=== PATIENT | female | born 1940 | race Caucasian/White ===

== ENCOUNTER 2018-08-21 09:06 | Day surgery (SDC) | payer MEDICARE, BC ==
[~2018-08-21] VITALS: Ht 165.1 cm; Wt 88.1 kg
[~2018-08-21 09:06] MED LIST: ASPI81CH PO; BENA20 PO; CALCIUM PO; HYDCHL25 PO; IBUP800 PO; IRON PO; OMEPRAZOLE20 MG PO; THERA1 EACH PO; VITAMIN B122500 MC1 PO
--- NOTE | 2018-08-21 09:40 | NUR ---
Ambulatory in Day Surgery. History, Chart, Medications and Allergies reviewed before start of procedure.Lungs clear T/O to Auscultation. Patient confirms NPO status and agrees with scheduled surgery.
[2018-08-21] MEDS ORDERED: Zantac150 MG (09:58)
--- NOTE | 2018-08-21 13:46 | NUR ---
NOTED REDDENED AND INDURATED AREA ALONG RT CHEEK ? FROM MASK. NO PAIN/BREAK IN SKIN NOTED
--- NOTE | 2018-08-21 18:47 | NUR ---
SHIFT SUMMARY S/P R TKA, CAMACHO WRAP DRESSING APPEARS CDI. TEDS, SCDS, POLAR AMAN ON. PAIN MANAGED PER EMAR. BRYANNA PO, DENIES N&V. WCTM & TX PER EMAR UNTIL REPORT GIVEN TO ONCOMING NOC RN.
[2018-08-22 04:40] LABS: BASOPHILS ABSOLUTE AUTO 0.02 K/mm3 (0.00-0.23); BASOPHILS PERCENT AUTO 0 % (0-2); EOSINOPHILS PERCENT AUTO 0 % (0-6); Hemoglobin 10.3 g/dL (11.5-16.0); IMMATURE GRAN ABSOLUTE AUTO 0.05 K/mm3 (0.00-0.10); IMMATURE GRAN PERCENT AUTO 0 % (0-1); LYMPHOCYTES ABSOLUTE AUTO 0.64 K/mm3 (0.84-5.20); LYMPHOCYTES PERCENT AUTO 5 % (21-46); MONOCYTES ABSOLUTE AUTO 0.65 K/mm3 (0.16-1.47); MONOCYTES PERCENT AUTO 5 % (4-13); Mean Corpuscular HGB 28.1 pg (26.0-34.0); Mean Corpuscular HGB Conc 31.2 g/dL (31.5-36.5); Mean Corpuscular Volume 90 fL (80-100); Mean Platelet Volume 9.2 fL (9.1-12.4); NEUTROPHILS ABSOLUTE AUTO 12.28 K/mm3 (1.96-9.15); NEUTROPHILS PERCENT AUTO 90 % (41-73); Platelet Count 291 K/mm3 (150-400); RDW Standard Deviation 45.6 fL (35.1-46.3); Red Blood Cell Count 3.67 M/mm3 (3.80-5.20); White Blood Cell Count 13.64 K/mm3 (4.00-11.30)
[2018-08-22 04:58] LABS: Anion Gap 6 mmol/L (6-16); Blood Urea Nitrogen 21 mg/dL (8-24); Bun/Creatinine Ratio 28.3 (12.0-20.0); CO2, Blood 28 mmol/L (21-32); Calcium, Blood 7.9 mg/dL (8.5-10.1); Chloride, Blood 103 mmol/L (98-108); Creatinine, Blood 0.74 mg/dL (0.40-1.00); Glomerular Filtration Rate >60 (60-); Glucose, Blood 119 mg/dL (70-99); Magnesium, Blood 1.8 mg/dL (1.6-2.4); Potassium, Blood 4.1 mmol/L (3.5-5.5); Sodium, Blood 137 mmol/L (136-145)
--- NOTE | 2018-08-22 05:50 | NUR ---
SHIFT SUMMARY PT RESTED WELL T/O AM. AAOX4. POD#1 RIGHT TKA. DISCOMFORT CONTROLLED WITH SCHEDULED TORADOL / TYLENOL + 5MG ROXICODONE Q4. NO NAUSEA/EMESIS. CAMACHO WRAP TO RIGHT KNEE C/D/I. PT UP TO RESTROOM SBA WITH FWW. 1L VIA NC, CONTINUE TO WEAN TOLERATED. CALL LIGHT IN REACH. PT USES FOR ASSISTANCE.
[2018-08-22] MEDS ORDERED: ROXICODONE5 MG PO (08:54)
[2018-08-22] MEDS ORDERED: PROM25 PO (08:54)
[2018-08-22] MEDS ORDERED: ASPI325EC PO (08:54)
--- NOTE | 2018-08-22 14:52 | NUR ---
DISCHARGE SUMMARY PT A&OX4, VSS, LEFT FLOOR VIA WC WITH RN TO GO HOME WITH AND DAUGHTER, WITH ALL PERSONAL POSSESSIONS INCLUDING DISCHARGE PACKET. PT REP ALREADY HAVING POSSESSION OF SCRIPTS. DISCHARGE INSTRUCTIONS PROVIDED. PT REP UNDERSTANDING THOSE INSTRUCTIONS INCLUDING DRESSING CHANGES 3-5 DAYS, FU WITH SURGEON 2WKS, OK TO SHOWER, NO TUB/JACUZZI, ASA AND TEDS 6 WKS, SHORT FREQUENT AMBULATION, REST/ICE/ELEVATE. DC IV.
== END 2018-08-22 14:25 | disposition home or self-care (01) ==
LOC: ORSCMMR 09:06 → ORD 10:30 → ORSCMMR 10:30 → SURS 14:23 → ORSCMMR 08-22 14:25 → SURS 08-22 14:25
PROVIDERS: Orthopaedic Surgery
PROC: 0SRC0J9 Replacement of Right Knee Joint with Synthetic Substitute, Cemented, Open Approach (ICD-10-PCS; principal; 2018-08-21 10:30)
PROC: 8E0YXBZ Computer Assisted Procedure of Lower Extremity (ICD-10-PCS; principal; 2018-08-21 10:30)
DX: M17.11 Unilateral primary osteoarthritis, right knee (principal); I10 Essential (primary) hypertension; K21.9 Gastro-esophageal reflux disease without esophagitis; E66.9 Obesity, unspecified; Z68.32 Body mass index [BMI] 32.0-32.9, adult; Z79.82 Long term (current) use of aspirin; Z79.899 Other long term (current) drug therapy
CPT/HCPCS: 73560-RT; 80048; 83735; 85025; 88300; 97110; 97116; 97162; 97530; C1713; C1776; J0171; J0690; J0735; J1100; J1170; J1885; J2250; J2370; J2405; J2704; J2795; J3010; J3370; J7120

== ENCOUNTER → 2020-04-07 | Outpatient (CLI) | payer MEDICARE, BC ==
[~2020-04-07] MED LIST changes: +ASPI325EC PO; +Aspir 8181 MG PO; +PROM25 PO; +ROXICODONE5 MG PO; +Zantac150 MG
[2020-04-07 14:25] LABS: C DIFFICILE DNA NEGATIVE (Negative)
== END | disposition home or self-care (01) ==
LOC: LAB SHORT 09:48 → PLD 09:48
PROVIDERS: Internal Medicine Gastroenterology
DX: R19.7 Diarrhea, unspecified (principal)
CPT/HCPCS: 87329; 87493

== ENCOUNTER 2020-04-14 11:29 | Day surgery (SDC) | payer MEDICARE, BC ==
[~2020-04-14] VITALS: Ht 165.1 cm; Wt 78.9 kg
--- NOTE | 2020-04-14 12:48 | NUR ---
04/14/20 1248 Inés Wilkinson CAP REFILL & PEDAL PULSES NOT ASSESSED.
--- NOTE | 2020-04-14 13:49 | NUR ---
04/14/20 1349 Inés Wilkinson 6ML NACL USED FOR POLYP REMOVAL, 5ML EPINEPHRINE USED FOR ANAL CANAL BXS.
== END 2020-04-14 14:15 | disposition home or self-care (01) ==
LOC: ORSCSDS 11:29
PROVIDERS: Internal Medicine Gastroenterology
PROC: 0DBH8ZX Excision of Cecum, Via Natural or Artificial Opening Endoscopic, Diagnostic (ICD-10-PCS; principal; 2020-04-14 12:45)
PROC: 0DBP8ZX Excision of Rectum, Via Natural or Artificial Opening Endoscopic, Diagnostic (ICD-10-PCS; principal; 2020-04-14 12:45)
DX: R19.7 Diarrhea, unspecified (principal); D12.0 Benign neoplasm of cecum; K52.832 Lymphocytic colitis; Z86.010 Personal history of colon polyps; K57.30 Diverticulosis of large intestine without perforation or abscess without bleeding; I10 Essential (primary) hypertension; Z79.899 Other long term (current) drug therapy; K21.9 Gastro-esophageal reflux disease without esophagitis; Z79.82 Long term (current) use of aspirin
CPT/HCPCS: 88305; J2704; J7120

== ENCOUNTER 2021-09-14 10:49 | Day surgery (SDC) | payer MEDICARE, BC ==
[~2021-09-14] VITALS: Ht 165.1 cm; Wt 85.6 kg
[~2021-09-14 10:49] MED LIST changes: +OMEP20ER PO; +PRAV20 PO
--- NOTE | 2021-09-14 17:32 | NUR ---
Assumed care of patient at approx 1545, received report from Harvey Mckeon. 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 Pt alert, oriented, forgetful at times, need ongoing reminders to not use left arm. Left arm in sling. Pressure dressing to left chest, c/d/i. Pt reporting 10/10 pain to left chest wall, ice placed and medicated per emar. Dr Sanders at bedside, pt discussed pain management with MD, no new orders at this time. Tele sinus with paced beats noted, bp stable. Ls dim bases, breathing even and unlabored, spo2 >90% on ra. Pt reports last bm 09/14/21; abd soft nontender. No other acute changes noted. Will continue to monitor unitl report given to oncoming rn.
[2021-09-15] MEDS ORDERED: Acetaminophen650 M1 PO (10:13)
[2021-09-15] MEDS ORDERED: CEPH500 PO (10:14)
--- NOTE | 2021-09-15 10:45 | NUR ---
DISCHARGE DISCHARGE PACKET GONE OVER WITH PT AT 1035. PT DISCHARGED AT 1045 VIA WHEELCHAIR AND ON RA. SLING IN PLACE ON LEFT ARM. DISCHARGE PACKET IN BAG ALONG WITH PERSONAL BELONGINGS, BAG WITH PT DURING DISCHARGE. PACEMAKER CARD AND EQUIPMENT WITH PT DURING DISCHARGE.
== END 2021-09-15 10:58 | disposition home or self-care (01) ==
LOC: MHTC 10:49 → PCU 14:37 → MHTC 09-15 10:58
DX: I49.5 Sick sinus syndrome (principal); R55 Syncope and collapse; I45.10 Unspecified right bundle-branch block; I47.1 Supraventricular tachycardia; I08.0 Rheumatic disorders of both mitral and aortic valves; I10 Essential (primary) hypertension; K21.9 Gastro-esophageal reflux disease without esophagitis; E78.5 Hyperlipidemia, unspecified; Z88.5 Allergy status to narcotic agent; Z79.82 Long term (current) use of aspirin; Z79.899 Other long term (current) drug therapy
CPT/HCPCS: 33208; 71045; 71046; 76937; 99152; 99153; A9270; C1785; C1894; C1898; J0690; J1644; J2250; J3010; J7030; J7040

== ENCOUNTER 2022-02-15 17:42 | Emergency (ER) | payer MEDICARE, BC ==
[~2022-02-15] VITALS: Ht 165.1 cm; Wt 81.7 kg
[~2022-02-15 17:42] MED LIST changes: +Acetaminophen650 M1 PO; +CEPH500 PO; +ELIQUIS2.5 MG PO; +METO50ER PO
[2022-02-15 18:13] LABS: BASOPHILS ABSOLUTE AUTO 0.05 K/mm3 (0.00-0.23); BASOPHILS PERCENT AUTO 1 % (0-2); EOSINOPHILS ABSOLUTE AUTO 0.12 K/mm3 (0.00-0.68); EOSINOPHILS PERCENT AUTO 1 % (0-6); Hemoglobin 12.3 g/dL (11.5-16.0); IMMATURE GRAN ABSOLUTE AUTO 0.04 K/mm3 (0.00-0.10); IMMATURE GRAN PERCENT AUTO 0 % (0-1); LYMPHOCYTES ABSOLUTE AUTO 1.74 K/mm3 (0.84-5.20); LYMPHOCYTES PERCENT AUTO 19 % (21-46); MONOCYTES ABSOLUTE AUTO 0.66 K/mm3 (0.16-1.47); MONOCYTES PERCENT AUTO 7 % (4-13); Mean Corpuscular HGB 27.5 pg (26.0-34.0); Mean Corpuscular HGB Conc 32.4 g/dL (31.5-36.5); Mean Corpuscular Volume 85 fL (80-100); Mean Platelet Volume 9.1 fL (9.1-12.4); NEUTROPHILS ABSOLUTE AUTO 6.34 K/mm3 (1.96-9.15); NEUTROPHILS PERCENT AUTO 71 % (41-73); Platelet Count 367 K/mm3 (150-400); RDW Coefficient Variation 14.1 % (11.7-14.2); RDW Standard Deviation 43.8 fL (35.1-46.3); Red Blood Cell Count 4.47 M/mm3 (3.80-5.20); White Blood Cell Count 8.95 K/mm3 (4.00-11.30)
[2022-02-15 18:26] LABS: Albumin, Blood 3.7 g/dL (3.4-5.0); Bilirubin, Total 0.4 mg/dL (0.1-1.0); Bun/Creatinine Ratio 23.4 (12.0-20.0); Calcium, Blood 9.6 mg/dL (8.5-10.1); Creatinine, Blood 0.77 mg/dL (0.40-1.00); Globulin, Blood 3.6 g/dL (2.2-4.0); Potassium, Blood 3.4 mmol/L (3.5-5.5); Total Protein, Blood 7.3 g/dL (6.4-8.2)
[2022-02-15] MEDS ORDERED: FAMO20 PO (21:42)
== END 2022-02-15 22:00 | disposition home or self-care (01) ==
LOC: ER 17:42
PROVIDERS: Emergency Medicine
DX: R07.89 Other chest pain (principal); Z88.5 Allergy status to narcotic agent; Z79.82 Long term (current) use of aspirin; Z79.899 Other long term (current) drug therapy
CPT/HCPCS: 71045; 71260; 80053; 84484; 85025; 93005; 93010; A9270; J1170; J2405; Q9967

== ENCOUNTER → 2022-03-06 | Outpatient (CLI) | payer MEDICARE, BC ==
[~2022-03-06] MED LIST changes: +FAMO20 PO
[2022-03-06 09:53] LABS: BASOPHILS ABSOLUTE AUTO 0.03 K/mm3 (0.00-0.23); BASOPHILS PERCENT AUTO 0 % (0-2); EOSINOPHILS ABSOLUTE AUTO 0.08 K/mm3 (0.00-0.68); EOSINOPHILS PERCENT AUTO 1 % (0-6); Hematocrit 35.9 % (33.0-51.0); Hemoglobin 11.6 g/dL (11.5-16.0); IMMATURE GRAN ABSOLUTE AUTO 0.03 K/mm3 (0.00-0.10); IMMATURE GRAN PERCENT AUTO 0 % (0-1); LYMPHOCYTES ABSOLUTE AUTO 0.67 K/mm3 (0.84-5.20); LYMPHOCYTES PERCENT AUTO 10 % (21-46); MONOCYTES ABSOLUTE AUTO 0.46 K/mm3 (0.16-1.47); MONOCYTES PERCENT AUTO 7 % (4-13); Mean Corpuscular HGB 27.4 pg (26.0-34.0); Mean Corpuscular HGB Conc 32.3 g/dL (31.5-36.5); Mean Corpuscular Volume 85 fL (80-100); Mean Platelet Volume 9.1 fL (9.1-12.4); NEUTROPHILS ABSOLUTE AUTO 5.79 K/mm3 (1.96-9.15); NEUTROPHILS PERCENT AUTO 82 % (41-73); Platelet Count 383 K/mm3 (150-400); RDW Coefficient Variation 14.4 % (11.7-14.2); RDW Standard Deviation 44.1 fL (35.1-46.3); Red Blood Cell Count 4.24 M/mm3 (3.80-5.20); White Blood Cell Count 7.06 K/mm3 (4.00-11.30)
[2022-03-06 10:06] LABS: Albumin, Blood 3.7 g/dL (3.4-5.0); Albumin/Globulin Ratio 0.9 (0.8-1.8); Bilirubin, Total 0.5 mg/dL (0.1-1.0); Bun/Creatinine Ratio 14.9 (12.0-20.0); Creatinine, Blood 0.67 mg/dL (0.40-1.00); Globulin, Blood 4.1 g/dL (2.2-4.0); Potassium, Blood 3.3 mmol/L (3.5-5.5); Total Protein, Blood 7.8 g/dL (6.4-8.2)
== END | disposition home or self-care (01) ==
LOC: LAB SHORT 09:50
PROVIDERS: Physician Assistant Medical
DX: R06.00 Dyspnea, unspecified (principal)
CPT/HCPCS: 80053; 85025

== ENCOUNTER → 2022-09-18 | Outpatient (CLI) | payer MEDICARE, BC | LOC: LAB 09:04 → LAB SHORT 09:04 | DX: M79.674 Pain in right toe(s) (principal) | CPT/HCPCS: 84550 ==

== ENCOUNTER 2023-09-16 10:54 | Emergency (ER) | payer MEDICARE, BC ==
[~2023-09-16] VITALS: Ht 165.1 cm; Wt 83.9 kg
[2023-09-16 10:57] VITALS: BP 188/72
[2023-09-16] MEDS ORDERED: Ondansetron 4 MG SoluTab SL ONE (11:00)
== END 2023-09-16 12:19 | disposition home or self-care (01) ==
LOC: ER 10:54
DX: S09.90XA Unspecified injury of head, initial encounter (principal); W01.0XXA Fall on same level from slipping, tripping and stumbling without subsequent striking against object, initial encounter
CPT/HCPCS: 70450; A9270